=== PATIENT | male | born 1995 | race Two or more races ===

== ENCOUNTER → 2020-08-05 | Outpatient (CLI) | payer BC | LOC: LAB 10:39 | PROVIDERS: ATTEND Nurse Practitioner Family | DX: R79.89 Other specified abnormal findings of blood chemistry (principal) | CPT/HCPCS: 36415; 84484 ==

== ENCOUNTER 2020-08-29 09:14 | Emergency (ER) | payer BC ==
[~2020-08-29] VITALS: Ht 180.3 cm; Wt 102.2 kg
[2020-08-29 09:20] VITALS: BP 121/71
--- NOTE | 2020-08-29 09:26 | PHYS DOC ---
Adult General Chief Complaint Chief Complaint: DENTAL PROBLEM HPI HPI Patient is a 24-year-old male presenting for suspect dental abscess. Patient reports increased pain, swelling and mild fluctuance located on his right upper gumline at site of prior root canal that was performed approximately 3 to 4 y ears ago. He noticed pain initially 4 days ago but has been gradually worsening. Nothing known makes better, palpation and chewing make worse. Quality is sharp focal pain without radiation. Denies any fever, systemic symptoms or expressible exudate. He took 400 mg of ibuprofen yesterday without significant relief. He is a college student here locally and has not established with a dentist, he presents here today knowing that he ultimately needs to see a dentist but the pain and fear of infection concerned him enough to present for evaluation Review of Systems Review of Systems Fourteen body systems of review of systems have been reviewed. See HPI for pertinent positives and negative responses, other rico all other systems are negative, non-pertinent or non-contributory Physical Exam Physical Exam General: Appears well, non toxic, and comfortable Skin: Warm, dry. Normal for ethnicity. Head: Atraumatic. EENT: PERRLA. Moist mucous membranes. Uvula midline. No trismus. Maintaining secretions. No phonation changes. Mild facial swelling over right maxillary sinus area. Mild swelling and tender periapical region superior to tooth #4 and 5 without expressible exudate or other material, no indication for incision and drainage or other intervention, remaining dentition well-appearing Neck: Trachea midline. Normal ROM. No stridor. Respiratory: Normal WOB. No tachypnea. Cardiovascular: Normal peripheral perfusion. Musculoskeletal: Normal ROM. Neuro: Alert and oriented x 4. MAEE. Lymph: No cervical LAD. Psych: Normal affect and mood. EKG EKG [] Radiology/Procedures Radiology/Procedures [] Heart Score C/O Chest Pain: No Risk Factors: Risk Factors: DM, Current or recent (<one month) smoker, HTN, HLP, family history of CAD, obesity. Risk Scores: Risk Factors: DM, Current or recent (<one month) smoker, HTN, HLP, family history of CAD, obesity. Course & Med Decision Making Course & Med Decision Making Hemodynamically stable patient with history and physical exam consistent with a dental abscess that has no indication for incision and drainage or other emergent/urgent intervention Discussed role of continued supportive care and need to establish with a local dentist. I feel it is indicated to start antibiotics, Augmentin administered while in ER and tolerated well. I have prescribed a short-term dose of narcotic pain medication for severe pain use only Patient educated extensively on disease process and next steps of care. He was educated on the 2 prescriptions he will be going home with, Augmentin and [place] 5. Patient to leave with resources detailing local dentist to establish care with for repeat evaluation Strict return precautions were discussed with good understanding by patient, all questions and concerns addressed prior to ER departure in stable condition Dragon Disclaimer Dragon Disclaimer This electronic medical record was generated, in whole or in part, using a voice recognition dictation system. Departure Departure: Impression: Primary Impression: Dental abscess Disposition: DC HOME SELF CARE/HOMELESS Condition: STABLE Referrals: PCP,JONATAN (PCP) Patient Instructions: Dental Abscess, Dental Pain Additional Instructions: You were seen for dental pain. There does appear to be a developing infection and so, antibiotics have been started for you. Please take them as prescribed to completion. Take Ibuprofen (600-800mg) and Tylenol (500-650mg) alternating every 4-6 hours to help with inflammation and pain while you contact a dentist for further care. You have been written and extremely short term dose of narcotic pain medication, please keep these somewhere safe and use them for severe pain only, ensure you do not operate heavy machinery or other dangerous tasks wall using them. You should return to the ED if you develop worsening pain, fever > 101, swelling, redness, or any other new or concerning symptoms. Scripts Hydrocodone Bit/Acetaminophen (HYDROCODONE-APAP 5-325 ) 1 Each Tablet 1 TAB PO PRN Q6HRS PRN for PAIN, #12 TAB 0 Refills Prov: FARZANA SHANNON DO 08/29/20 Amoxicillin/Potassium Clav (AUGMENTIN 875-125 TABLET) 1 Each Tablet 1 TAB PO BID for Dental Abscess for 7 Days, #13 TAB 0 Refills Prov: FARZANA SHANNON DO 08/29/20 FARZANA SHANNON DO Aug 29, 2020 09:26
[2020-08-29] MEDS ORDERED: AMOX1TAB61 PO (09:35)
[2020-08-29] MEDS ORDERED: HYDR-2155 PO (09:35)
[2020-08-29] MEDS: ACETAMINOPHEN 325 MG TABLET PO ONE (09:37)
[2020-08-29] MEDS: AMOXICILLIN/K CLAV 875/125MG TABLET. PO ONE (09:37)
== END 2020-08-29 09:47 | disposition home or self-care (01) ==
LOC: ER 09:14
DX: K04.7 Periapical abscess without sinus (principal); K08.89 Other specified disorders of teeth and supporting structures; R60.0 Localized edema
CPT/HCPCS: 99283